=== PATIENT | female | born 1985 | race Hispanic/Latino ===

== ENCOUNTER → 2016-04-04 | Outpatient (REF) | payer OTHER ==
[~2016-04-04] MED LIST: PRENTAB9 PO
== END ==
LOC: M SFHCLERA 12:35
PROVIDERS: ATTEND Nurse Practitioner Family
DX: J02.9 Acute pharyngitis, unspecified (principal)

== ENCOUNTER 2016-04-28 05:42 | Inpatient (IN) | payer OTHER ==
[2016-04-28] VITALS (7 sets, daily range): BP systolic 109–137; BP diastolic 56–91
[~2016-04-28] VITALS: Ht 165.1 cm; Wt 75.0 kg
[2016-04-28] MEDS ORDERED: LR 1,000 ML IV SCH ×2 (06:30→09:45)
[2016-04-28 06:44] LABS: MEAN CORPUSCULAR HEMOGLOBIN 29.5 pg (27.0-33.0); MEAN CORPUSCULAR HGB CONC 33.3 g/dl (32.0-36.5); MEAN CORPUSCULAR VOLUME 88.5 fl (80.0-96.0); RED CELL DISTRIBUTION WIDTH 13.2 % (11.5-14.5); WHITE BLOOD COUNT 5.8 K/mm3 (4.0-10.0)
[2016-04-28] MEDS ORDERED: BICITRA 30ML SOLN UDC PO SCH (07:01)
[2016-04-28] MEDS ORDERED: OXYTOCIN INJ 10 UNITS/ML VIAL (J2590) As Ordered ONE ×4 (07:24→08:12)
[2016-04-28] MEDS ORDERED: MORPHINE PRES-FREE INJ 10 MG/10 ML VIAL (J2274) As Ordered ONE (07:25)
[2016-04-28] MEDS ORDERED: METOCLOPRAMIDE INJ 10MG/2ML VIAL (J2765) As Ordered ONE (07:28)
[2016-04-28] MEDS ORDERED: NALOXONE INJ 0.4 MG/1 ML VIAL (J2310) IV PRN ×2 (07:42)
[2016-04-28] MEDS ORDERED: NALBUPHINE HCL 10 MG/ML AMP (J2300) IV PRN ×2 (07:42→09:45)
[2016-04-28] MEDS ORDERED: METOCLOPRAMIDE INJ 10MG/2ML VIAL (J2765) IV PRN (07:42)
[2016-04-28] MEDS ORDERED: ONDANSETRON 4MG/2ML VIAL (J2405) IV PRN ×2 (07:42→09:45)
[2016-04-28] MEDS ORDERED: PHENYLephrine HCL 500 MCG/5 ML (100MCG/ML) SYRINGE (J2370) As Ordered ONE ×2 (07:51→08:02)
[2016-04-28] MEDS ORDERED: ONDANSETRON 4MG/2ML VIAL (J2405) As Ordered ONE (07:53)
[2016-04-28] MEDS ORDERED: KETOROLAC 60 MG/2 ML VIAL (J1885) As Ordered ONE (07:53)
[2016-04-28] MEDS ORDERED: KETAMINE HCL 200 MG/20 ML VIAL As Ordered ONE (08:44)
[2016-04-28] MEDS ORDERED: MIDAZOLAM INJ 2 MG/2 ML VIAL (J2250) As Ordered ONE (08:45)
[2016-04-28] MEDS: PRENATAL VITAMIN TAB PO SCH (09:00)
[2016-04-28] MEDS ORDERED: ERTAPENEM SODIUM 1 GM in NS MINI-BAG PLUS 50 ML IV ONE (09:00)
[2016-04-28] MEDS ORDERED: BUPIVACAINE HCL 0.25% 30 ML VIAL As Ordered ONE (09:10)
[2016-04-28] MEDS ORDERED: BUPIVACAINE HCL 0.25% 30 ML VIAL SC ONE (09:15)
[2016-04-28] MEDS ORDERED: DOCUSATE SODIUM 100 MG CAP PO PRN (09:30)
[2016-04-28] MEDS ORDERED: MEASLES,MUMPS,RUBELLA VACCINE INJ (MMR-II) (90707) SC SCH (09:30)
[2016-04-28] MEDS ORDERED: OXYTOCIN DRIP 30 UNITS in APPROPRIATE DILUENT 1 EA IV ONE (09:30)
[2016-04-28] MEDS ORDERED: RHOGAM 300 MCG (1500 IU) INJ (J2790) IM SCH (09:30)
[2016-04-28] MEDS ORDERED: PERCOCET 5MG/325MG TAB PO PRN (09:45)
[2016-04-28] MEDS ORDERED: fentaNYL 100 MCG/2 ML INJECTION (J3010) IV PRN (09:45)
[2016-04-28] MEDS ORDERED: MEPERIDINE INJ 25 MG/ML VIAL (J2175) IV PRN (09:45)
[2016-04-28] MEDS ORDERED: HYDROmorphone HCL 1 MG/ML SYRINGE (J1170) IV PRN (09:45)
--- NOTE | 2016-04-28 13:22 | RO ---
DATE OF PROCEDURE: 04/28/2016 PREOPERATIVE DIAGNOSIS: Colon injury during section. POSTOPERATIVE DIAGNOSES: 1. Colon injury during section. 2. Adhesion to the abdominal wall. PROCEDURE PERFORMED: 1. Lysis of adhesion. 2. Repair of colonic tear at the sigmoid colon. SURGEON: Rustam Zuniga MD CO-SURGEON: Nik Perry MD ESTIMATED BLOOD LOSS FROM THIS PROCEDURE: Minimal. COMPLICATIONS: None. REMARKS: Ms. Cabrera is undergoing section. I was called in by Dr. Perry. He recognized a colonic tear in the antimesenteric wall of the colon on entry into the abdomen during the section. At the time that I saw the patient, the section has been completed. I scrubbed and evaluated the injury. There is about a centimeter and half opening at the antimesenteric border of what appears to be the sigmoid colon. This was still partially adhered to the abdominal wall. Thus after controlling the injury site with [place]'s, the rest of the sigmoid colon was freed up from the left side of the anterior abdominal wall with sharp dissection. After careful lysis of adhesions, the colon was pulled up into view. The injury was noted to be full thickness. There was only minimal spillage, as reported. This was grasped in a transverse fashion using a TA-30 stapler with a green load. The opening was stapled. This was reinforced with a #3-0 silk in a Lembert fashion. This was placed back into the abdomen. The abdomen was then irrigated with 2 liters of warm saline. We further run the bowel. No other injuries were noted. At this point, I scrubbed out and Dr. Perry continued with his surgery.
[2016-04-28] MEDS: KETOROLAC 30 MG/ML VIAL (J1885) IV SCH ×2 (13:52→20:00)
[2016-04-28] MEDS: LR 1,000 ML IV SCH ×3 (14:27→20:00)
[2016-04-28] MEDS ORDERED: ACETAMINOPHEN 500 MG TAB PO PRN (18:30)
[2016-04-29] VITALS (7 sets, daily range): BP systolic 101–156; BP diastolic 50–82
[2016-04-29] MEDS: KETOROLAC 30 MG/ML VIAL (J1885) IV SCH ×2 (01:38→08:39)
[2016-04-29] MEDS: PERCOCET 5MG/325MG TAB PO PRN ×4 (01:38→21:44)
[2016-04-29 06:56] LABS: MEAN CORPUSCULAR HEMOGLOBIN 29.3 pg (27.0-33.0); MEAN CORPUSCULAR HGB CONC 33.2 g/dl (32.0-36.5); MEAN CORPUSCULAR VOLUME 88.4 fl (80.0-96.0); RED CELL DISTRIBUTION WIDTH 13.1 % (11.5-14.5); WHITE BLOOD COUNT 16.2 K/mm3 (4.0-10.0)
[2016-04-29] MEDS: PRENATAL VITAMIN TAB PO SCH (08:39)
[2016-04-29] MEDS: ERTAPENEM SODIUM 1 GM in NS MINI-BAG PLUS 50 ML IV SCH (09:19)
--- NOTE | 2016-04-29 10:48 | RO ---
DATE OF PROCEDURE: 04/28/2016 PREPROCEDURE DIAGNOSES: 36-0/7 weeks gestation, prior history of uterine rupture. Cornual ectopic . POSTPROCEDURE DIAGNOSES: 36-0/7 weeks gestation, prior history of uterine rupture. Cornual ectopic . PROCEDURE: Primary low transverse section as well as repair of incidental enterotomy. SURGEON: Dr. Nik Perry. REGIONAL OPERATIONS DIRECTOR: Cathryn Hamm. ANESTHESIA: Spinal. ESTIMATED BLOOD LOSS: About 500 mL. FINDINGS: 4 pound 5 ounce female infant, vertex position, clear amniotic fluid. There were dense adhesions of the sigmoid colon to the anterior abdominal wall in the pelvis. There were dense adhesions of the left uterine fundus in the anterior abdominal wall. Surgically absent left ovary and fallopian tube. There is a normal appearing right ovary and fallopian tube. The myometrium of the left cornual region of the uterus was noted to be extremely thin. OPERATIVE SUMMARY: The patient was taken to the operating room where spinal anesthesia was induced. She was prepped and draped in a sterile fashion in the supine position. Farr catheter was placed. A Pfannenstiel skin incision was made with a scalpel and carried through to the fascia. The fascia was nicked and extended bilaterally. The fascia was dissected sharply off the rectus muscles. The rectus muscles were divided in the midline. It was noted that bowel was densely adherent to the anterior abdominal wall in the midline in the lower pelvis. Enterotomy was noted which was likely created when dissecting the fascia off the rectus muscles. Once the bowel was identified, a window was observed between the bladder and the bowel which allowed entry into the peritoneal cavity. Bladder flap was created. Bladder blade was placed. Decision was made to proceed with delivery and deal with the bowel injury after was completed. A curvilinear incision was made in the lower uterine segment. Clear fluid was noted and extended manually. The was delivered in vertex position without difficulties, standard maneuvers. Cord was doubly clamped and cut. The infant was handed off to the awaiting nurses. Placenta was expressed. Dense adhesions of the uterus and anterior wall on the left side were taken down sharply. The uterus was exteriorized and cleared of clots and debris. Uterine incision was closed with #0 Vicryl in running locked fashion. The second imbricating layer of #0 Vicryl was placed. Uterus was placed back in the abdominal cavity. The bowel adhered to the anterior abdominal wall appeared to be sigmoid colon. Metzenbaum scissors were used to sharply dissect bowel off the anterior abdominal wall. At that point, general surgeon, Dr. Rustam Zuniga, was called for consultation. Dr Zuniga responded quickly. A [place] clamp was placed over a 10 mm enterotomy site to prevent spillage of bowel contents.He was able to completely dissect the sigmoid colon off the anterior abdominal wall. He used a surgical stapler to cross clamp the enterotomy site and over-sewed the enterotomy with silk sutures. Please see Dr. Zuniga's operative note for details. Pelvis and abdomen was copiously irrigated. Bowel was returned to the abdomen. There was no evidence of any further enterotomies on close inspection. The peritoneum was then closed with #2-0 Vicryl in a running fashion. The fascia was closed with #0 Vicryl in a running fashion. Subcutaneous tissue was irrigated. Deep layers closed with #3-0 chromic, skin was closed with #4-0 Monocryl subcuticular sutures. Sponge, needle and instrument counts were correct. Patient went to the recovery room in stable condition. [facility]ITAL[facility]
[2016-04-29] MEDS ORDERED: OXYC1TAB23 PO (13:36)
[2016-04-29] MEDS: IBUPROFEN 800 MG TAB PO SCH (16:32)
[2016-04-29] MEDS: DOCUSATE SODIUM 100 MG CAP PO SCH (21:44)
[2016-04-30] MEDS: IBUPROFEN 800 MG TAB PO SCH ×3 (00:12→15:48)
[2016-04-30] MEDS: PERCOCET 5MG/325MG TAB PO PRN ×4 (02:04→20:49)
[2016-04-30 06:18] VITALS: BP 109/59
[2016-04-30 07:50] LABS: BASO % 0.1 % (0.0-1.0); EOS # 0.2 K/mm3 (0.0-0.50); EOS % 1.3 % (0.0-3.0); LARGE UNSTAINED CELL # 0.1 K/mm3 (0.0-0.4); LARGE UNSTAINED CELL % 0.8 % (0.0-4.0); LYMPH # 1.2 K/mm3 (1.5-6.5); LYMPH % 7.9 % (24.0-44.0); MEAN CORPUSCULAR HEMOGLOBIN 28.8 pg (27.0-33.0); MEAN CORPUSCULAR HGB CONC 32.4 g/dl (32.0-36.5); MONO # 0.3 K/mm3 (0.0-0.8); MONO % 2.4 % (0.0-5.0); NEUTROPHILS % 87.5 % (36.0-66.0); PLATELET COUNT, AUTOMATED 261 k/mm3 (150-450); RED CELL DISTRIBUTION WIDTH 13.3 % (11.5-14.5); WHITE BLOOD COUNT 13.7 K/mm3 (4.0-10.0)
[2016-04-30 08:04] LABS: ANION GAP 10 MEQ/L (8-16); BLOOD UREA NITROGEN 9 MG/DL (7-18); CARBON DIOXIDE LEVEL 23 MEQ/L (21-32); CHLORIDE LEVEL 108 MEQ/L (98-107); CREATININE FOR GFR 0.42 MG/DL (0.55-1.02); GLOMERULAR FILTRATION RATE > 60.0 (>60); GLUCOSE, FASTING 83 MG/DL (70-105); POTASSIUM SERUM 3.8 MEQ/L (3.5-5.1); SODIUM LEVEL 141 MEQ/L (136-145)
[2016-04-30] MEDS: DOCUSATE SODIUM 100 MG CAP PO SCH ×2 (09:34→20:49)
[2016-04-30] MEDS: PRENATAL VITAMIN TAB PO SCH (09:34)
[2016-04-30 10:00] VITALS: BP 120/72
[2016-04-30] MEDS: ERTAPENEM SODIUM 1 GM in NS MINI-BAG PLUS 50 ML IV SCH (10:03)
[2016-04-30] MEDS: ONDANSETRON 4MG/2ML VIAL (J2405) IV PRN (12:34)
[2016-04-30 14:16] VITALS: BP 120/70
[2016-04-30 18:00] VITALS: BP 117/67
[2016-05-01] MEDS: IBUPROFEN 800 MG TAB PO SCH ×3 (00:32→16:08)
[2016-05-01] MEDS: PERCOCET 5MG/325MG TAB PO PRN ×4 (02:02→12:38)
[2016-05-01] MEDS: ONDANSETRON 4MG/2ML VIAL (J2405) IV PRN (03:18)
[2016-05-01 06:06] VITALS: BP 126/76
[2016-05-01] MEDS: DICYCLOMINE 10 MG CAP PO SCH ×3 (09:00→20:51)
[2016-05-01] MEDS: DOCUSATE SODIUM 100 MG CAP PO SCH (09:10)
[2016-05-01] MEDS: PRENATAL VITAMIN TAB PO SCH (09:10)
[2016-05-01] MEDS: ERTAPENEM SODIUM 1 GM in NS MINI-BAG PLUS 50 ML IV SCH (09:12)
[2016-05-01 18:02] VITALS: BP 123/71
[2016-05-01] MEDS: SENOKOT S TAB PO SCH (20:51)
[2016-05-01 22:00] VITALS: BP 119/74
[2016-05-02] MEDS: IBUPROFEN 800 MG TAB PO SCH ×2 (00:37→08:37)
[2016-05-02 01:32] VITALS: BP 126/76
[2016-05-02] MEDS: PERCOCET 5MG/325MG TAB PO PRN (02:18)
[2016-05-02 05:28] VITALS: BP 117/74
--- NOTE | 2016-05-02 07:52 | DSES ---
DATE OF ADMISSION: 04/28/2016 DATE OF DISCHARGE: 05/02/2016 30-year-old G8, P1 female 36-0/7 weeks gestation by 8 week ultrasound presents for primary section. Indication for section was early delivery with a history of ruptured uterus due to cornual ectopic in the past. HOSPITAL COURSE: The patient was admitted on 04/28/2016. She underwent primary low transverse section for a 4 pound, 5 ounce female . The surgery was complicated by 1 cm sigmoid colon injury. The reason for the sigmoid colon injury was dense adhesions of the sigmoid colon at the anterior abdominal wall overlying the Pfannenstiel surgical site. General surgery was consulted and they repaired the injury without difficulty. The patient's postoperative course was unremarkable. She was maintained on antibiotics for several days due to the possibility of surgical incision contamination from the colon injury. She had adequate return of bowel and bladder function. Her postoperative hemoglobin was 8.4 grams/dL. She was observed for an extra day postoperatively due to the complication from the surgery. The baby was in the intensive care unit (NICU) due to prematurity. The patient was deemed stable for discharge on postoperative day number four. ADMISSION DIAGNOSES: 1. 36 weeks. 2. History of uterine rupture. POSTOPERATIVE DIAGNOSES: Delivered. PROCEDURE: 1. Primary low transverse section. 2. Repair of sigmoid colon injury. DISPOSITION: The patient will followup with Dr. Perry in two weeks. Instructions were reviewed.
[2016-05-02] MEDS ORDERED: IBUP-1114 PO (08:05)
[2016-05-02] MEDS: DICYCLOMINE 10 MG CAP PO SCH (08:37)
[2016-05-02] MEDS: SENOKOT S TAB PO SCH (08:37)
[2016-05-02] MEDS: PRENATAL VITAMIN TAB PO SCH (08:37)
== END 2016-05-02 09:00 | disposition home or self-care (01) | DRG 765 ==
LOC: M LDI 05:42 → M OBS 11:45
PROVIDERS: ADMIT Specialist; ATTEND Specialist
PROC: 0DQN0ZZ Repair Sigmoid Colon, Open Approach (ICD-10-PCS; 2016-04-28)
PROC: 0DNE0ZZ Release Large Intestine, Open Approach (ICD-10-PCS; 2016-04-28)
PROC: 10D00Z1 Extraction of Products of Conception, Low, Open Approach (ICD-10-PCS; principal; 2016-04-28 07:30)
DX: O99.62 Diseases of the digestive system complicating childbirth (principal); K56.5 Intestinal adhesions [bands] with obstruction (postinfection); Z37.0 Single live birth; Z3A.36 36 weeks gestation of pregnancy; O09.13 Supervision of pregnancy with history of ectopic pregnancy, third trimester; O71.89 Other specified obstetric trauma

== ENCOUNTER → 2016-06-15 | Outpatient (CLI) | payer OTHER ==
[~2016-06-15] MED LIST changes: +IBUP-1114 PO; +OXYC1TAB23 PO
[2016-06-15 15:43] LABS: ALBUMIN 3.8 GM/DL (3.2-5.2); ALBUMIN/GLOBULIN RATIO 0.93 (1.00-1.93); ALKALINE PHOSPHATASE 108 U/L (45-117); ALT/SGPT 18 U/L (12-78); ANION GAP 9 MEQ/L (8-16); AST/SGOT 25 U/L (15-37); BILIRUBIN,TOTAL 0.4 MG/DL (0.2-1.0); BLOOD UREA NITROGEN 16 MG/DL (7-18); CALCIUM LEVEL 9.3 MG/DL (8.5-10.1); CARBON DIOXIDE LEVEL 28 MEQ/L (21-32); CHLORIDE LEVEL 104 MEQ/L (98-107); CREATININE FOR GFR 0.72 MG/DL (0.55-1.02); FREE T4 0.98 NG/DL (0.76-1.46); GLOMERULAR FILTRATION RATE > 60.0 (>60); GLUCOSE, FASTING 72 MG/DL (70-105); POTASSIUM SERUM 4.4 MEQ/L (3.5-5.1); SODIUM LEVEL 141 MEQ/L (136-145); TOTAL PROTEIN 7.9 GM/DL (6.4-8.2)
[2016-06-15 15:47] LABS: BASO % 0.5 % (0.0-1.0); EOS # 0.1 K/mm3 (0.0-0.50); EOS % 1.1 % (0.0-3.0); LARGE UNSTAINED CELL # 0.1 K/mm3 (0.0-0.4); LARGE UNSTAINED CELL % 1.4 % (0.0-4.0); LYMPH # 1.7 K/mm3 (1.5-6.5); LYMPH % 30.8 % (24.0-44.0); MEAN CORPUSCULAR HEMOGLOBIN 28.4 pg (27.0-33.0); MEAN CORPUSCULAR HGB CONC 30.4 g/dl (32.0-36.5); MEAN CORPUSCULAR VOLUME 93.4 fl (80.0-96.0); MONO # 0.2 K/mm3 (0.0-0.8); MONO % 3.6 % (0.0-5.0); NEUTROPHILS # 3.4 K/mm3 (1.8-7.7); NEUTROPHILS % 62.6 % (36.0-66.0); PLATELET COUNT, AUTOMATED 320 k/mm3 (150-450); RED CELL DISTRIBUTION WIDTH 14.2 % (11.5-14.5); WHITE BLOOD COUNT 5.4 K/mm3 (4.0-10.0)
== END ==
LOC: M SMT 11:16
PROVIDERS: ATTEND Physician Assistant
DX: R63.4 Abnormal weight loss (principal)

== ENCOUNTER → 2017-05-29 | Outpatient (REF) | payer OTHER | LOC: M LAB REF 12:28 | DX: J06.9 Acute upper respiratory infection, unspecified (principal) ==

== ENCOUNTER → 2017-10-01 | Outpatient (REF) | payer OTHER | LOC: M SFHCLERA 09:52 | DX: J02.9 Acute pharyngitis, unspecified (principal) ==

== ENCOUNTER → 2018-02-23 | Outpatient (CLI) | payer OTHER | LOC: M LRY 17:55 | DX: R05 Cough (principal); R11.2 Nausea with vomiting, unspecified; R10.13 Epigastric pain; Z97.5 Presence of (intrauterine) contraceptive device | CPT/HCPCS: 81002 ==

== ENCOUNTER → 2020-01-23 | Outpatient (REF) ==
--- NOTE | 2020-01-23 17:09 | REP ---
INDICATION: POSITIVE PPD PT HAVING LABS FIRST COMPARISON: 02/23/2018 TECHNIQUE: PA and lateral. FINDINGS: The mediastinum and cardiac silhouette are normal. The lung rizo are clear and without acute consolidation, effusion, or pneumothorax. The skeletal structures are intact and normal. IMPRESSION: No acute cardiopulmonary process. <Electronically signed by Casey Duarte > 01/23/20 [id number]
== END ==
LOC: M LAB 16:45
PROVIDERS: ATTEND Nurse Practitioner Adult Health
DX: Z00.00 Encounter for general adult medical examination without abnormal findings (principal)

== ENCOUNTER → 2020-04-30 | Outpatient (REF) | LOC: M LABSMTC 11:52 | PROVIDERS: ATTEND Pediatrics | DX: Z20.822 Contact with and (suspected) exposure to COVID-19 (principal) ==

== ENCOUNTER → 2020-06-10 | Outpatient (REF) | payer BC, OTHER | LOC: M LAB REF 18:31 | PROVIDERS: ATTEND Family Medicine | DX: J06.9 Acute upper respiratory infection, unspecified (principal) ==

== ENCOUNTER → 2020-06-22 | Outpatient (REF) | payer BC, OTHER | LOC: M LAB REF 18:03 | PROVIDERS: ATTEND Physician Assistant | DX: Z86.16 Personal history of COVID-19 (principal) ==

== ENCOUNTER → 2020-08-04 | Outpatient (CLI) | payer BC ==
[2020-08-04 10:13] LABS: BASO % 0.4 % (0.0-1.0); EOS # 0.1 10^3/uL (0.0-0.5); EOS % 0.7 % (0.0-3.0); HEMATOCRIT 38.7 % (36.0-47.0); HEMOGLOBIN 12.3 g/dl (12.0-15.5); LYMPH # 1.3 10^3/uL (1.5-5.0); LYMPH % 17.7 % (24.0-44.0); MEAN CORPUSCULAR HEMOGLOBIN 29.1 pg (27.0-33.0); MEAN CORPUSCULAR HGB CONC 31.8 g/dl (32.0-36.5); MEAN CORPUSCULAR VOLUME 91.7 fl (80.0-96.0); MONO # 0.3 10^3/uL (0.0-0.8); MONO % 4.1 % (2.0-8.0); NEUTROPHILS # 5.8 10^3/uL (1.5-8.5); NEUTROPHILS % 76.6 % (36.0-66.0); PLATELET COUNT, AUTOMATED 363 10^3/uL (150-450); RED BLOOD COUNT 4.22 10^6/uL (4.00-5.40); WHITE BLOOD COUNT 7.6 10^3/uL (4.0-10.0)
[2020-08-04 10:52] LABS: FREE T4 0.94 NG/DL (0.76-1.46)
[2020-08-06 15:08] LABS: ANA (HEP2) Negative (.); TESTOSTERONE FREE (DIRECT) 3.2 pg/mL (0.0-4.2)
== END ==
LOC: M LAB 09:16
PROVIDERS: ATTEND Physician Assistant
DX: L65.8 Other specified nonscarring hair loss (principal)

== ENCOUNTER → 2020-08-04 | Outpatient (CLI) | payer BC ==
[~2020-08-04] MED LIST changes: +E-Z-GAS II EFFERVESCENT PACKET (SODIUM BICARB./CITRIC ACID/SIMETHICONE) As Ordered ONE; +E-Z-HD 98% w/w 340GM SUSP BTL As Ordered ONE; +E-Z-PAQUE 96% w/w SUSP 176GM BTL As Ordered ONE; +ISOVUE-370 76% 100ML VIAL As Ordered ONE
--- NOTE | 2020-08-04 10:05 | REPVR ---
PROCEDURE INFORMATION: Exam: CT Maxillofacial Without Contrast, Sinus Exam date and time: 08/04/2020 9:59 AM Age: 34 years old Clinical indication: Sinusitis; Type not specified; Additional info: Disturbances of smell and taste, dysphagia, labs 1st TECHNIQUE: Imaging protocol: CT Maxillofacial without contrast. Focus on the sinuses. Radiation optimization: All CT scans at this facility use at least one of these dose optimization techniques: automated exposure control; mA and/or kV adjustment per patient size (includes targeted exams where dose is matched to clinical indication); or iterative reconstruction. COMPARISON: No relevant prior studies available. FINDINGS: Frontal sinuses: The frontal sinuses are underdeveloped. No air-fluid levels. Ethmoid air cells: Normal. No air-fluid levels. Sphenoid sinuses: Normal. No air-fluid levels. Maxillary sinuses: Normal. No air-fluid levels. Ostiomeatal units are patent. Nasal cavity/Septum: There is a elisabeth bullosa of the right middle turbinate. Orbital cavity: Orbits are normal. Globes are unremarkable. Bones/joints: Unremarkable. Soft tissues: There is focal mucosal thickening involving the adenoids. IMPRESSION: 1. Focal mucosal thickening of the adenoids. Direct inspection by ENT may be of benefit. 2. No significant sinus mucosal thickening. Electronically signed by: Cheri Lazcano On 08/04/2020 10:05:12 AM
--- NOTE | 2020-08-04 10:11 | REPVR ---
PROCEDURE INFORMATION: Exam: CT Neck With Contrast Exam date and time: 08/04/2020 9:59 AM Age: 34 years old Clinical indication: Neck pain; Additional info: Disturbances of smell and taste, dysphagia, labs 1st TECHNIQUE: Imaging protocol: Computed tomography images of the neck with contrast. Radiation optimization: All CT scans at this facility use at least one of these dose optimization techniques: automated exposure control; mA and/or kV adjustment per patient size (includes targeted exams where dose is matched to clinical indication); or iterative reconstruction. Contrast material: ISO 370; Contrast volume: 75 ml; Contrast route: INTRAVENOUS (IV); COMPARISON: No relevant prior studies available. FINDINGS: Nasopharynx: There is focal thickening of the nasopharyngeal soft tissues along the midline. Oropharynx: There are calcifications within the palatine tonsils bilaterally. Hypopharynx: Unremarkable. Larynx: Unremarkable. Normal epiglottis. Retropharyngeal space: Unremarkable. Submandibular/Parotid glands: Normal. Glands are normal in size. Thyroid: Normal. No enlarged or calcified nodules. Lymph nodes: Unremarkable. No lymphadenopathy. Trachea: Visualized trachea is unremarkable. Lungs: Unremarkable as visualized. Bones/joints: Unremarkable. No acute fracture. Soft tissues: Unremarkable. No significant soft tissue swelling. IMPRESSION: Focal thickening of the nasopharyngeal soft tissues. Direct inspection by ENT is recommended. Electronically signed by: Cheri Lazcano On 08/04/2020 10:10:50 AM
--- NOTE | 2020-08-04 10:33 | REP ---
INDICATION: PRIOR HX OF COVID-19 WOB COUGH COMPARISON: 01/23/2020 TECHNIQUE: PA and lateral. FINDINGS: The mediastinum and cardiac silhouette are normal. The lung rizo are clear and without acute consolidation, effusion, or pneumothorax. The skeletal structures are intact and normal. IMPRESSION: No acute cardiopulmonary process. <Electronically signed by Casey Duarte > 08/04/20 1028
--- NOTE | 2020-08-04 17:11 | REP ---
INDICATION: DYSPHAGIA, UNSPECIFIED / LABS 1ST . TECHNIQUE: This procedure was performed by Lurdes Mcclelland [facility], under the direct supervision of . Images were reviewed with prior to dictation. Liquid barium and gas producing crystals were given in the erect position, as well as liquid barium in the prone oblique position in order to perform a double contrast upper GI examination. FINDINGS: The bisque kiln drawer film shows no organomegaly or pathological masses. The intestinal gas pattern is unremarkable. The oral and pharyngeal stages of deglutition demonstrated a delay in the oral to pharyngeal stage. Esophageal transport is prompt and efficient and there is no evidence of esophagitis, stricture, or mucosal ring. There is no evidence of a hiatal hernia. Gastroesophageal reflux was visualized to the level of the thoracic inlet. The stomach moncada are normally outlined. The rugal folds are smooth and regular. There is no gastritis, neoplasm, or ulcerative disease. The duodenal mnocada are normally outlined. The mucosal folds are smooth and regular. There is no duodenitis, peptic ulcer disease or neoplasm. The visualized portion of the proximal small bowel appears normal in course and caliber. IMPRESSION: 1. Gastroesophageal reflux to the level of the thoracic inlet. 0.4 minutes of fluoroscopy time was utilized for this procedure. Some fluoroscopic images are performed with last image hold technology. These images require no additional radiation. <Electronically signed by Lurdes Mcclelland > 08/04/20 1627 <Electronically signed by Blayne Nieto > 08/04/20 1706
== END ==
LOC: M RAD 09:07
PROVIDERS: ATTEND Otolaryngology
DX: K21.9 Gastro-esophageal reflux disease without esophagitis (principal); Z86.16 Personal history of COVID-19; R06.02 Shortness of breath; R05 Cough; R43.8 Other disturbances of smell and taste; R13.10 Dysphagia, unspecified
CPT/HCPCS: 70486; 70491; 71046; 74220; Q9967

== ENCOUNTER → 2020-09-14 | Outpatient (CLI) | payer BC ==
[~2020-09-14] MED LIST changes: -E-Z-GAS II EFFERVESCENT PACKET (SODIUM BICARB./CITRIC ACID/SIMETHICONE) As Ordered ONE; -E-Z-HD 98% w/w 340GM SUSP BTL As Ordered ONE; -E-Z-PAQUE 96% w/w SUSP 176GM BTL As Ordered ONE; -ISOVUE-370 76% 100ML VIAL As Ordered ONE
[2020-09-14 12:57] LABS: BASO % 0.5 % (0.0-1.0); EOS % 0.5 % (0.0-3.0); HEMATOCRIT 40.4 % (36.0-47.0); HEMOGLOBIN 12.8 g/dl (12.0-15.5); LYMPH # 1.6 10^3/uL (1.5-5.0); LYMPH % 21.8 % (24.0-44.0); MEAN CORPUSCULAR HGB CONC 31.7 g/dl (32.0-36.5); MEAN CORPUSCULAR VOLUME 91.6 fl (80.0-96.0); MONO # 0.4 10^3/uL (0.0-0.8); MONO % 4.9 % (2.0-8.0); NEUTROPHILS # 5.3 10^3/uL (1.5-8.5); NEUTROPHILS % 71.9 % (36.0-66.0); PLATELET COUNT, AUTOMATED 434 10^3/uL (150-450); RED BLOOD COUNT 4.41 10^6/uL (4.00-5.40); WHITE BLOOD COUNT 7.4 10^3/uL (4.0-10.0)
[2020-09-14 13:25] LABS: ALBUMIN 3.3 GM/DL (3.2-5.2); ALT/SGPT 18 U/L (12-78); BILIRUBIN,TOTAL 0.4 MG/DL (0.2-1.0); BLOOD UREA NITROGEN 13 MG/DL (7-18); CALCIUM LEVEL 9.2 MG/DL (8.5-10.1); CARBON DIOXIDE LEVEL 28 MEQ/L (21-32); CHLORIDE LEVEL 104 MEQ/L (98-107); CHOLESTEROL LEVEL 265 MG/DL (<200); CHOLESTEROL RISK RATIO 5.408 (<5); GLOMERULAR FILTRATION RATE > 60.0 (>60); GLUCOSE, FASTING 93 MG/DL (70-100); HDL CHOLESTEROL 49 MG/DL (>40); LDL CHOLESTEROL 196 MG/DL (<100); NON-HDL-C 216 MG/DL; POTASSIUM SERUM 4.8 MEQ/L (3.5-5.1); SODIUM LEVEL 137 MEQ/L (136-145); TOTAL PROTEIN 7.7 GM/DL (6.4-8.2); TRIGLYCERIDES LEVEL 100 MG/DL (<150)
== END ==
LOC: M LAB 11:52
PROVIDERS: ATTEND Physician Assistant Medical
DX: Z00.00 Encounter for general adult medical examination without abnormal findings (principal); E66.8 Other obesity; R23.3 Spontaneous ecchymoses; Z13.220 Encounter for screening for lipoid disorders

== ENCOUNTER → 2020-10-19 | Outpatient (CLI) | payer BC ==
[~2020-10-19] MED LIST changes: +AMIT25TA17 PO; +QVAR40AE12 IN; +SPIR-10 PO; +VITA-199 PO; +[UNRECOGNIZED DRUG - CODE] PO
--- NOTE | 2020-10-19 11:56 | REP ---
INDICATION: NAUSEA. COMPARISON: None. TECHNIQUE/RADIOTRACER AND DOSE: 1.05 mCi of Technetium-99m sulfur colloid was ingested in two scrambled eggs and 6 ounces of water and sequential anterior and posterior images are acquired for an 89-minute imaging observation period. Regions of interest are drawn around the stomach to plot gastric emptying. FINDINGS: Expected T1/2 is 90 minutes. Ninety-seven% emptying is observed in this patient during the 89-minute imaging observation period, for a calculated T1/2 in this patient of 43 minutes. IMPRESSION: Normal gastric emptying. <Electronically signed by Andrea Fry > 10/19/20 [id number]
== END ==
LOC: M RAD 08:50
PROVIDERS: ATTEND Physician Assistant Medical
DX: R11.0 Nausea (principal)
CPT/HCPCS: 78264; A9541

== ENCOUNTER → 2020-10-21 | Outpatient (CLI) | payer BC | LOC: M LABSMTC 11:59 | PROVIDERS: ATTEND Anesthesiology | DX: Z01.812 Encounter for preprocedural laboratory examination (principal); Z20.822 Contact with and (suspected) exposure to COVID-19 ==

== ENCOUNTER 2020-10-23 06:42 | Day surgery (SDC) | payer BC ==
[~2020-10-23] VITALS: Ht 165.1 cm; Wt 106.5 kg
[~2020-10-23 06:42] MED LIST changes: +NS 1,000 ML IV ONE
[2020-10-23] MEDS ORDERED: fentaNYL 100 MCG/2 ML INJECTION (J3010) As Ordered ONE (07:39)
[2020-10-23] MEDS ORDERED: LIDOCAINE 2% 100MG/5ML SDV (FOR ANES.) As Ordered ONE (07:39)
[2020-10-23] MEDS ORDERED: propofoL 200 MG/20 ML VIAL As Ordered ONE ×2 (07:39→07:40)
--- NOTE | 2020-10-23 08:10 | ROOR ---
Patient Name: Maya Cabrera Procedure Date: 10/23/2020 7:27 AM Date of : 1985 Age: 35 Room: [facility] Gender: Female Note Status: Finalized Procedure: Upper GI endoscopy Indications: Dysphagia, Nausea Providers: Ravinder Heredia MD Referring MD: Geetha RUDOLPH DO Requesting Provider: Medicines: Monitored Anesthesia Care Complications: No immediate complications. Procedure: Pre-Anesthesia Assessment: - Prior to the procedure, a History and Physical was performed, and patient medications and allergies were reviewed. The patient is competent. The risks and benefits of the procedure and the sedation options and risks were discussed with the patient. All questions were answered and informed consent was obtained. Patient identification and proposed procedure were verified by the physician, the nurse and the anesthesiologist in the procedure room. Mental Status Examination: alert and oriented. Airway Examination: normal oropharyngeal airway and neck mobility. Respiratory Examination: clear to auscultation. CV Examination: normal. Prophylactic Antibiotics: The patient does not require prophylactic antibiotics. Prior Anticoagulants: The patient has taken no previous anticoagulant or antiplatelet agents. ASA Grade Assessment: II - A patient with mild systemic disease. After reviewing the risks and benefits, the patient was deemed in satisfactory condition to undergo the procedure. The anesthesia plan was to use monitored anesthesia care (MAC). Immediately prior to administration of medications, the patient was re-assessed for adequacy to receive sedatives. The heart rate, respiratory rate, oxygen saturations, blood pressure, adequacy of pulmonary ventilation, and response to care were monitored throughout the procedure. The physical status of the patient was re-assessed after the procedure. The Endoscope was introduced through the mouth, and advanced to the second part of duodenum. The upper GI endoscopy was accomplished without difficulty. The patient tolerated the procedure well. Findings: Normal mucosa was found in the entire esophagus. A small hiatal hernia was present. Scattered moderate inflammation characterized by erosions, friability and granularity was found in the gastric antrum. Biopsies were taken with a cold forceps for histology. Biopsies were taken with a cold forceps for Helicobacter pylori testing. Verification of patient identification for the specimen was done by the physician and nurse using the patient's name, date and medical record number. Estimated blood loss was minimal. The duodenal bulb and second portion of the duodenum were normal. Biopsies for histology were taken with a cold forceps for evaluation of celiac disease. Impression: - Normal mucosa was found in the entire esophagus. - Small hiatal hernia. - Gastritis. Biopsied. - Normal duodenal bulb and second portion of the duodenum. Biopsied. Recommendation: - Patient has a contact number available for emergencies. The signs and symptoms of potential delayed complications were discussed with the patient. Return to normal activities tomorrow. Written discharge instructions were provided to the patient. - High fiber diet. - Continue present medications. - Follow an antireflux regimen. - Await pathology results. - Telephone GI clinic for pathology results in 2 weeks. - Return to GI clinic if persistent symptoms or new symptoms. - Return to primary care physician. Procedure Code(s): --- Professional --- 68825, Esophagogastroduodenoscopy, flexible, transoral; with biopsy, single or multiple Diagnosis Code(s): --- Professional --- K44.9, Diaphragmatic hernia without obstruction or gangrene K29.70, Gastritis, unspecified, without bleeding R13.10, Dysphagia, unspecified R11.0, Nausea CPT copyright 2019 [employer]. All rights reserved. The codes documented in this report are preliminary and upon parking assistant review may be revised to meet current compliance requirements. Ravinder Heredia MD Ravinder Heredia MD 10/23/2020 8:10:16 AM Electronically signed by Ravinder Heredia MD Number of Addenda: 0 Note Initiated On: 10/23/2020 7:27 AM Estimated Blood Loss: Estimated blood loss was minimal.
[2020-10-23 08:35] VITALS: BP 135/95
== END 2020-10-23 08:44 | disposition home or self-care (01) ==
LOC: M OPP 06:42
PROVIDERS: ATTEND Internal Medicine Gastroenterology
DX: K44.9 Diaphragmatic hernia without obstruction or gangrene (principal); K29.70 Gastritis, unspecified, without bleeding; R13.10 Dysphagia, unspecified; R11.0 Nausea; Z88.0 Allergy status to penicillin; Z91.040 Latex allergy status; Z91.048 Other nonmedicinal substance allergy status; Z79.899 Other long term (current) drug therapy
CPT/HCPCS: 43239; 88305; J3010

== ENCOUNTER → 2021-01-25 | Outpatient (REF) | payer BC ==
[~2021-01-25] MED LIST changes: -NS 1,000 ML IV ONE
== END ==
LOC: M LAB REF 17:03
PROVIDERS: ATTEND Physician Assistant
DX: J06.9 Acute upper respiratory infection, unspecified (principal)

== ENCOUNTER → 2021-03-10 | Outpatient (CLI) | payer BC ==
--- NOTE | 2021-03-11 11:59 | PFTRPT ---
Site: [facility], [address] [place] [address], [id number] ID: [id number] Name: RED PATE Visit Date: 03/10/2021 Second ID: [id number] Referring Doctor: Ana Younger Reviewing Doctor: Bradford Harley MD Manager Analytical: Real FERNANDES RRT Age: 35 : 1985 Sex: Female Race: Black Height: 65.00 Inches Weight: 243.00 Lbs BSA: 2.15 Order IDs: [id number] Requested Test(s): <RESP-PFT.PFT B/A> Diagnosis: R05 of albuterol for post bronchodilator. The results of this test meet the ATS standards for acceptability and repeatability. Review Status: Not Reviewed Pre-Bronch Post-Bronch Pred Actual %Pred Actual %Chng SPIROMETRY FVC (L) 3.28 3.35 102 3.41 1 FEV1 (L) 2.75 2.85 103 3.01 5 FEV1/FVC (%) 85 85 100 88 3 FEF 25% (L/sec) 5.71 5.42 94 5.43 FEF 50% (L/sec) 4.38 4.34 98 5.10 17 FEF 75% (L/sec) 1.81 1.36 75 2.15 57 FEF 25-75% (L/sec) 3.13 3.35 107 4.21 25 FEF Max (L/sec) 6.94 5.46 78 5.76 5 FIVC (L) 3.10 3.28 5 FIF 50% (L/sec) 4.40 4.14 94 4.23 2 FIF Max (L/sec) 4.14 4.45 7 MVV (L/min) 108 108 99 Expiratory Time (sec) 6.46 6.12 -5 Back Extrap Vol (L) 0.10 0.14 32 Time To FEFmax (sec) 0.134 0.201 49 LUNG VOLUMES SVC (L) 3.69 3.27 88 IC (L) 2.34 2.65 113 ERV (L) 1.35 0.62 46 TGV (L) 2.87 1.94 67 RV (Pleth) (L) 1.51 1.32 86 TLC (Pleth) (L) 5.20 4.59 88 RV/TLC (Pleth) (%) 28 29 100 DIFFUSION DLCOunc (ml/min/mmHg) 24.92 18.18 72 DLCOcor (ml/min/mmHg) 24.92 19.42 77 DL/VA (ml/min/mmHg/L) 4.79 4.68 97 VA (L) 5.20 4.15 79 BHT (sec) 9.95 IVC (L) 3.07 TLC (SB) (L) 4.30 AIRWAYS RESISTANCE Raw (cmH2O/L/s) 1.86 1.16 62 Gaw (L/s/cmH2O) 1.03 0.87 84 sRaw (cmH2O*s) 4.76 2.30 48 sGaw (1/cmH2O*s) 0.20 0.44 216 BLOOD GASES Hgb (gm/dL) 11.5
== END ==
LOC: M CARPUL 15:17
PROVIDERS: ATTEND Nurse Practitioner Adult Health
DX: R05.9 Cough, unspecified (principal)

== ENCOUNTER → 2021-03-16 | Outpatient (CLI) | payer BC ==
[~2021-03-16] MED LIST changes: +METHACHOLINE KIT (J7674) INH ONE
--- NOTE | 2021-03-16 15:41 | PFTRPT ---
Site: [facility], [address] [place], [address] ID: [id number] Name: RED PATE Visit Date: 03/16/2021 Second ID: [id number] Referring Doctor: Ana Younger Reviewing Doctor: Bradford Harley MD Solar Water Heater Installer: Real FERNANDES RRT Age: 35 : 1985 Sex: Female Race: Black Height: 65.00 Inches Weight: 243.00 Lbs BSA: 2.15 Order IDs: [id number] Requested Test(s): <RESP-PFT.METH CHAL> Diagnosis: R05 of albuterol for post bronchodilator. Review Status: Not Reviewed Pre-Bronch Post-Bronch Pred Actual %Pred Actual %Chng SPIROMETRY FVC (L) 3.28 3.35 102 3.32 FEV1 (L) 2.75 2.84 103 2.86 FEV1/FVC (%) 85 85 100 86 1 FEF 25% (L/sec) 5.71 6.13 107 5.86 -4 FEF 50% (L/sec) 4.38 4.39 100 4.16 -5 FEF 75% (L/sec) 1.81 1.31 72 1.42 8 FEF 25-75% (L/sec) 3.13 3.30 105 3.35 1 FEF Max (L/sec) 6.94 6.18 89 6.23 FIVC (L) 2.28 3.43 50 FIF 50% (L/sec) 4.40 5.10 115 4.21 -17 FIF Max (L/sec) 5.19 4.59 -11 Expiratory Time (sec) 5.37 6.63 23 Back Extrap Vol (L) 0.10 0.09 -6 Time To FEFmax (sec) 0.114 0.089 -22
== END ==
LOC: M CARPUL 14:47
PROVIDERS: ATTEND Nurse Practitioner Adult Health
DX: R05.9 Cough, unspecified (principal)
CPT/HCPCS: 94070; J7674

== ENCOUNTER → 2021-04-22 | Outpatient (CLI) | payer BC ==
[~2021-04-22] MED LIST changes: -METHACHOLINE KIT (J7674) INH ONE
[2021-04-22 19:05] LABS: GC DNA AMPLIFICATION NEGATIVE (NEGATIVE)
[2021-04-23 13:25] LABS: HEPATITIS C VIRUS ABY INDEX < 0.0 INDEX (<0.8); HIV 1&2 SCREEN CENTAUR NEGATIVE (NEGATIVE)
== END ==
LOC: M PLALAB 15:06
PROVIDERS: ATTEND Specialist
DX: Z20.2 Contact with and (suspected) exposure to infections with a predominantly sexual mode of transmission (principal)

== ENCOUNTER → 2021-05-05 | Outpatient (CLI) | payer BC ==
[2021-05-05 13:56] LABS: ALBUMIN 3.4 GM/DL (3.2-5.2); ALT/SGPT 21 U/L (12-78); BILIRUBIN,TOTAL 0.3 MG/DL (0.2-1.0); BLOOD UREA NITROGEN 12 MG/DL (7-18); CALCIUM LEVEL 9.1 MG/DL (8.5-10.1); CARBON DIOXIDE LEVEL 27 MEQ/L (21-32); CHLORIDE LEVEL 106 MEQ/L (98-107); CREATININE FOR GFR 0.67 MG/DL (0.55-1.30); FOLLICLE STIMULATING HORMONE 9.1 mIU/mL; GLOMERULAR FILTRATION RATE > 60.0 (>60); GLUCOSE, FASTING 96 MG/DL (70-100); POTASSIUM SERUM 4.5 MEQ/L (3.5-5.1); SODIUM LEVEL 141 MEQ/L (136-145); TESTOSTERONE 36 NG/DL (14-76); THYROID STIMULATING HORMONE 0.796 uIU/ML (0.358-3.740); TOTAL PROTEIN 7.3 GM/DL (6.4-8.2)
== END ==
LOC: M PLALAB 09:52
PROVIDERS: ATTEND Family Medicine
DX: E66.01 Morbid (severe) obesity due to excess calories (principal)

== ENCOUNTER → 2021-07-19 | Outpatient (CLI) | payer BC ==
[2021-07-19 13:23] LABS: HEMOGLOBIN A1c 5.6 %
== END ==
LOC: M LAB 10:15
PROVIDERS: ATTEND Surgery
DX: Z86.39 Personal history of other endocrine, nutritional and metabolic disease (principal)

== ENCOUNTER 2021-07-22 11:42 | Emergency (ER) | payer BC ==
[~2021-07-22] VITALS: Ht 165.1 cm; Wt 110.0 kg
[2021-07-22] MEDS ORDERED: PRED10TA2 (11:49)
[2021-07-22] MEDS ORDERED: ALLE1TAB23 (11:49)
[2021-07-22] MEDS ORDERED: NORE0.353 (12:41)
[2021-07-22 12:52] LABS: BASO % 0.5 % (0.0-1.0); EOS % 0.5 % (0.0-3.0); HEMATOCRIT 37.4 % (36.0-47.0); HEMOGLOBIN 12.2 g/dl (12.0-15.5); LYMPH # 1.1 10^3/uL (1.5-5.0); LYMPH % 17.5 % (24.0-44.0); MEAN CORPUSCULAR HEMOGLOBIN 29.6 pg (27.0-33.0); MEAN CORPUSCULAR HGB CONC 32.6 g/dl (32.0-36.5); MEAN CORPUSCULAR VOLUME 90.8 fl (80.0-96.0); MONO # 0.5 10^3/uL (0.0-0.8); MONO % 8.1 % (2.0-8.0); NEUTROPHILS # 4.7 10^3/uL (1.5-8.5); NEUTROPHILS % 72.8 % (36.0-66.0); PLATELET COUNT, AUTOMATED 342 10^3/uL (150-450); RED BLOOD COUNT 4.12 10^6/uL (4.00-5.40); WHITE BLOOD COUNT 6.5 10^3/uL (4.0-10.0)
[2021-07-22 14:01] VITALS: BP 126/90
== END 2021-07-22 14:02 | disposition home or self-care (01) ==
LOC: M ED 11:42
DX: Z32.01 Encounter for pregnancy test, result positive (principal); Z87.59 Personal history of other complications of pregnancy, childbirth and the puerperium; O99.511 Diseases of the respiratory system complicating pregnancy, first trimester; Z88.0 Allergy status to penicillin; Z91.89 Other specified personal risk factors, not elsewhere classified; Z91.040 Latex allergy status

== ENCOUNTER → 2021-09-01 | Outpatient (CLI) | payer BC ==
[~2021-09-01] MED LIST changes: +ALLE1TAB23; +NORE0.353; +PRED10TA2
[2021-09-01 11:43] LABS: HEMATOCRIT 36.8 % (36.0-47.0); HEMOGLOBIN 11.9 g/dl (12.0-15.5); MEAN CORPUSCULAR HEMOGLOBIN 29.5 pg (27.0-33.0); MEAN CORPUSCULAR HGB CONC 32.3 g/dl (32.0-36.5); MEAN CORPUSCULAR VOLUME 91.3 fl (80.0-96.0); PLATELET COUNT, AUTOMATED 328 10^3/uL (150-450); RED BLOOD COUNT 4.03 10^6/uL (4.00-5.40); WHITE BLOOD COUNT 10.3 10^3/uL (4.0-10.0)
[2021-09-01 13:00] LABS: HEPATITIS C VIRUS ABY INDEX 0.1 INDEX (<0.8); HIV 1&2 SCREEN CENTAUR NEGATIVE (NEGATIVE)
[2021-09-01 13:34] LABS: GC DNA AMPLIFICATION NEGATIVE (NEGATIVE)
== END ==
LOC: M LAB 10:57
PROVIDERS: ATTEND Obstetrics & Gynecology
DX: Z36.89 Encounter for other specified antenatal screening (principal); Z3A.10 10 weeks gestation of pregnancy

== ENCOUNTER → 2021-09-02 | Outpatient (CLI) | payer BC | LOC: M PLALAB 10:38 | PROVIDERS: ATTEND Obstetrics & Gynecology | DX: O09.512 Supervision of elderly primigravida, second trimester (principal); Z3A.00 Weeks of gestation of pregnancy not specified ==

== ENCOUNTER → 2021-09-29 | Outpatient (REF) | payer BC ==
[2021-09-29 14:05] LABS: APPEARANCE, URINE HAZY (CLEAR); BACTERIA, URINE AUTO NEGATIVE (NEGATIVE); BILIRUBIN, URINE AUTO NEGATIVE (NEGATIVE); BLOOD, URINE BLOOD NEGATIVE (NEGATIVE); COLOR, URINE YELLOW (YELLOW); GLUCOSE, URINE (UA) AUTO NEGATIVE (NEGATIVE); KETONE, URINE AUTO 2+ mg/dL (NEGATIVE); LEUKOCYTE ESTERASE, URINE AUTO NEGATIVE (NEGATIVE); MUCUS, URINE SMALL (NEGATIVE); NITRITE, URINE AUTO NEGATIVE (NEGATIVE); PROTEIN, URINE AUTO NEGATIVE (NEGATIVE); RBC, URINE AUTO 0 /HPF (0-3); SPECIFIC GRAVITY URINE AUTO 1.017 (1.002-1.035); SQUAMOUS EPITHELIAL CELL UR AU 3 /HPF (0-6); WBC, URINE AUTO 0 /HPF (0-3)
== END ==
LOC: M PLALAB 11:25
PROVIDERS: ATTEND Obstetrics & Gynecology
DX: Z34.92 Encounter for supervision of normal pregnancy, unspecified, second trimester (principal)

== ENCOUNTER → 2021-10-19 | Outpatient (CLI) | payer BC | LOC: M WHC 09:31 | PROVIDERS: ATTEND Obstetrics & Gynecology | DX: O32.1XX0 Maternal care for breech presentation, not applicable or unspecified (principal); Z36.89 Encounter for other specified antenatal screening; Z3A.19 19 weeks gestation of pregnancy ==

== ENCOUNTER → 2021-11-09 | Outpatient (CLI) | payer BC | LOC: M WHC 13:43 | PROVIDERS: ATTEND Obstetrics & Gynecology | DX: Z34.90 Encounter for supervision of normal pregnancy, unspecified, unspecified trimester (principal); Z3A.21 21 weeks gestation of pregnancy ==

== ENCOUNTER → 2021-11-16 | Outpatient (REF) | LOC: M LAB 13:00 | PROVIDERS: ATTEND Nurse Practitioner Family | DX: Z02.89 Encounter for other administrative examinations (principal) ==

== ENCOUNTER → 2021-11-26 | Outpatient (CLI) | payer BC ==
[2021-11-26 10:39] LABS: HEMATOCRIT 31.7 % (36.0-47.0); HEMOGLOBIN 10.2 g/dl (12.0-15.5); MEAN CORPUSCULAR HEMOGLOBIN 29.1 pg (27.0-33.0); MEAN CORPUSCULAR HGB CONC 32.2 g/dl (32.0-36.5); MEAN CORPUSCULAR VOLUME 90.6 fl (80.0-96.0); PLATELET COUNT, AUTOMATED 346 10^3/uL (150-450); WHITE BLOOD COUNT 7.9 10^3/uL (4.0-10.0)
== END ==
LOC: M PLALAB 07:11
PROVIDERS: ATTEND Obstetrics & Gynecology
DX: O34.211 Maternal care for low transverse scar from previous cesarean delivery (principal)

== ENCOUNTER → 2021-12-01 | Outpatient (CLI) | payer BC | LOC: M WHC 14:51 | PROVIDERS: ATTEND Obstetrics & Gynecology | DX: O34.211 Maternal care for low transverse scar from previous cesarean delivery (principal); Z3A.25 25 weeks gestation of pregnancy ==

== ENCOUNTER → 2021-12-08 | Outpatient (CLI) | payer BC ==
[~2021-12-08] MED LIST changes: +ACET325C5 PO
== END ==
LOC: M WHC 10:43
PROVIDERS: ATTEND Obstetrics & Gynecology
DX: O36.5920 Maternal care for other known or suspected poor fetal growth, second trimester, not applicable or unspecified (principal); O28.3 Abnormal ultrasonic finding on antenatal screening of mother; Z3A.00 Weeks of gestation of pregnancy not specified

== ENCOUNTER → 2021-12-09 | Outpatient (REF) | LOC: M LABSMTC 09:44 | PROVIDERS: ATTEND Family Medicine | DX: Z20.822 Contact with and (suspected) exposure to COVID-19 (principal) ==

== ENCOUNTER 2021-12-10 22:55 | Outpatient (CLI) | payer BC ==
[~2021-12-10] VITALS: Ht 165.1 cm; Wt 95.7 kg
[~2021-12-10 22:55] MED LIST changes: -ACET325C5 PO
[2021-12-10 23:10] VITALS: BP 129/71
[2021-12-10] MEDS ORDERED: LR 1,000 ML IV SCH (23:25)
[2021-12-10] MEDS ORDERED: BETAMETHASONE SOLUSPAN 6MG/ML 5ML VIAL (J0702 PER 3MG) IM ONE (23:25)
[2021-12-10] MEDS ORDERED: LR 1,000 ML IV ONE (23:25)
[2021-12-10] MEDS ORDERED: PRENTAB9 PO (23:30)
[2021-12-10] MEDS ORDERED: ACET325C5 PO (23:30)
[2021-12-11 00:18] VITALS: BP 121/79
[2021-12-11 00:48] LABS: HEMATOCRIT 31.1 % (36.0-47.0); HEMOGLOBIN 10.3 g/dl (12.0-15.5); MEAN CORPUSCULAR HEMOGLOBIN 29.2 pg (27.0-33.0); MEAN CORPUSCULAR HGB CONC 33.1 g/dl (32.0-36.5); MEAN CORPUSCULAR VOLUME 88.1 fl (80.0-96.0); PLATELET COUNT, AUTOMATED 317 10^3/uL (150-450); RED BLOOD COUNT 3.53 10^6/uL (4.00-5.40); WHITE BLOOD COUNT 6.6 10^3/uL (4.0-10.0)
[2021-12-11] MEDS ORDERED: AZITHROMYCIN 250MG TABLET PO ONE (00:55)
[2021-12-11] MEDS ORDERED: ceFAZolin SOD 1 GM in D5W MINI-BAG PLUS 50 ML IV SCH (01:00)
[2021-12-11] MEDS ORDERED: CALCIUM GLUCONATE 1,000 MG in D5W MINI-BAG PLUS 100 ML IV PRN (01:25)
[2021-12-11] MEDS ORDERED: ACETAMINOPHEN TAB 650MG DOSE (2X325MG) PO PRN (01:25)
[2021-12-11] MEDS ORDERED: MAG Sulf (L&D) 4 GM/100 ML 4 GM in IV 1 EA IV ONE (01:25)
[2021-12-11] MEDS ORDERED: DOCUSATE SODIUM 100MG CAPSULE PO PRN (01:25)
[2021-12-11 01:27] VITALS: BP 135/73
[2021-12-11] MEDS ORDERED: MAG Sulf (OBGYN) 20GM/500ML 20,000 MG in IV 1 EA IV SCH (01:45)
[2021-12-11 01:59] LABS: APPEARANCE, URINE MANUAL CLOUDY (CLEAR); BILIRUBIN, URINE MANUAL NEGATIVE (NEGATIVE); COLOR, URINE MANUAL YELLOW (YELLOW); GLUCOSE, URINE (UA) MANUAL NEGATIVE (NEGATIVE); KETONE, URINE MANUAL 2+ mg/dL (NEGATIVE); NITRITE, URINE MANUAL NEGATIVE (NEGATIVE); PROTEIN, URINE MANUAL 2+ mg/dL (NEGATIVE); UROBILINOGEN, URINE MANUAL NORMAL (NORMAL)
[2021-12-11 02:00] LABS: BLOOD URINE MANUAL NEGATIVE (NEGATIVE); LEUKOCYTE ESTERASE, URINE MAN NEGATIVE (NEGATIVE)
[2021-12-11 02:09] LABS: SQUAMOUS EPITHELIAL CELL URINE LARGE AMOUNT /hpf (SMALL AMT); TRANSITIONAL EPI CELLS, URINE SMALL AMOUNT /hpf
[2021-12-11 02:10] LABS: HYALINE CAST, URINE NONE SEEN /lpf (0-1); MUCUS, URINE LARGE AMOUNT (NEGATIVE)
[2021-12-11 02:22] LABS: URIC ACID CRYSTALS, URINE SMALL AMOUNT /hpf
[2021-12-11 02:24] LABS: BACTERIA, URINE MOD AMOUNT
[2021-12-11] MEDS ORDERED: PRENATAL VITAMINS CHEWABLE TABLET PO SCH (09:00)
== END 2021-12-11 04:00 | disposition short-term general hospital (02) ==
LOC: M LDO 22:55
PROVIDERS: ATTEND Obstetrics & Gynecology
DX: O42.912 Preterm premature rupture of membranes, unspecified as to length of time between rupture and onset of labor, second trimester (principal); O34.219 Maternal care for unspecified type scar from previous cesarean delivery; O09.512 Supervision of elderly primigravida, second trimester; O09.12 Supervision of pregnancy with history of ectopic pregnancy, second trimester; Z3A.27 27 weeks gestation of pregnancy
CPT/HCPCS: 59025; 76816; 81000; 85027; 86780; 86850; 86900; 86901; 87081; 96372; 96374; G0463; J0690; J0702; J3475

== ENCOUNTER → 2022-06-20 | Outpatient (CLI) | payer BC ==
[~2022-06-20] MED LIST changes: +ACET325C5 PO
== END ==
LOC: M LABSMTC 09:05
PROVIDERS: ATTEND Anesthesiology
DX: Z01.812 Encounter for preprocedural laboratory examination (principal); Z20.822 Contact with and (suspected) exposure to COVID-19

== ENCOUNTER → 2022-11-30 | Outpatient (REF) ==
[~2022-11-30] MED LIST changes: -AMIT25TA17 PO; +AMIT25TA19 PO; +BENZ200C70 PO; +PROM25TA12 PO; +ZITHTAB PO
== END ==
LOC: M EMP 11:44
PROVIDERS: ATTEND Family Medicine
DX: Z11.52 Encounter for screening for COVID-19 (principal)

== ENCOUNTER 2022-12-02 12:26 | Emergency (ER) | payer BC ==
[~2022-12-02] VITALS: Ht 165.1 cm; Wt 8.9 kg
[~2022-12-02 12:26] MED LIST changes: -BENZ200C70 PO; -PROM25TA12 PO; -ZITHTAB PO
[2022-12-02] MEDS ORDERED: PROM25TA12 PO (15:36)
[2022-12-02] MEDS ORDERED: ZITHTAB PO (15:36)
[2022-12-02] MEDS ORDERED: BENZ200C70 PO (15:36)
[2022-12-02 15:53] VITALS: BP 124/75; TEMP 97.2; O2SAT 95
== END 2022-12-02 15:45 | disposition home or self-care (01) ==
LOC: M ED 12:26
DX: U07.1 COVID-19 (principal); A37.00 Whooping cough due to Bordetella pertussis without pneumonia; Z88.0 Allergy status to penicillin; Z91.040 Latex allergy status; Z91.048 Other nonmedicinal substance allergy status

== ENCOUNTER → 2023-03-13 | Outpatient (REF) ==
[~2023-03-13] MED LIST changes: -ALLE1TAB23; +BENZ200C70 PO; +FEXO-157; +PROM25TA12 PO; +ZITHTAB PO
[2023-03-13 10:46] LABS: RSV AMPLIFICATION NEGATIVE (NEGATIVE)
== END ==
LOC: M EMP 08:36
PROVIDERS: ATTEND Family Medicine
DX: Z20.828 Contact with and (suspected) exposure to other viral communicable diseases (principal)

== ENCOUNTER → 2023-06-08 | Outpatient (CLI) | payer BC ==
[2023-06-08 09:20] LABS: BASO % 0.6 % (0.0-1.0); EOS % 0.3 % (0.0-3.0); HEMATOCRIT 38.2 % (36.0-47.0); HEMOGLOBIN 12.5 g/dl (12.0-15.5); LYMPH # 1.3 10^3/uL (1.5-5.0); MEAN CORPUSCULAR HEMOGLOBIN 29.8 pg (27.0-33.0); MEAN CORPUSCULAR HGB CONC 32.7 g/dl (32.0-36.5); MEAN CORPUSCULAR VOLUME 91.2 fl (80.0-96.0); MONO # 0.2 10^3/uL (0.0-0.8); MONO % 3.2 % (2.0-8.0); NEUTROPHILS # 4.7 10^3/uL (1.5-8.5); NEUTROPHILS % 74.7 % (36.0-66.0); PLATELET COUNT, AUTOMATED 368 10^3/uL (150-450); RED BLOOD COUNT 4.19 10^6/uL (4.00-5.40); WHITE BLOOD COUNT 6.3 10^3/uL (4.0-10.0)
[2023-06-08 09:33] LABS: HEMOGLOBIN A1c 5.8 % (4.0-6.0)
[2023-06-08 10:11] LABS: TOTAL IRON BINDING CAPACITY 376 UG/DL (250-425); VITAMIN B12 LEVEL 584 PG/ML (211-911)
[2023-06-08 10:12] LABS: ALBUMIN 3.5 G/DL (3.2-5.2); ALKALINE PHOSPHATASE 60 U/L (46-116); ALT/SGPT 14 U/L (7.0-40); AST/SGOT 21 U/L (<34); BILIRUBIN,TOTAL 0.5 MG/DL (0.3-1.2); BLOOD UREA NITROGEN 14 MG/DL (9-23); CALCIUM LEVEL 8.8 MG/DL (8.5-10.1); CARBON DIOXIDE LEVEL 26 MMOL/L (20-31); CHLORIDE LEVEL 106 MMOL/L (98-107); CHOLESTEROL LEVEL 239 MG/DL (<200); FREE T4 0.99 NG/DL (0.89-1.76); GLOMERULAR FILTRATION RATE > 60.0 (>60); GLUCOSE, FASTING 87 MG/DL (60-100); IRON (FE) 86 UG/DL (50-170); LDL CHOLESTEROL 164.8 MG/DL (<100); PERCENT SATURATION 22.9 % (13.2-45.0); POTASSIUM SERUM 4.6 MMOL/L (3.5-5.1); SODIUM LEVEL 139 MMOL/L (136-145); THYROID STIMULATING HORMONE 0.935 uIU/ML (0.55-4.78); TOTAL PROTEIN 7.3 G/DL (5.7-8.2); TRIGLYCERIDES LEVEL 106 MG/DL (<150)
[2023-06-08 10:13] LABS: FOLATE > 24.0 NG/ML (>5.4)
== END ==
LOC: M LAB 07:41
PROVIDERS: ATTEND Family Medicine
DX: Z13.220 Encounter for screening for lipoid disorders (principal); Z13.29 Encounter for screening for other suspected endocrine disorder; Z13.0 Encounter for screening for diseases of the blood and blood-forming organs and certain disorders involving the immune mechanism

== ENCOUNTER → 2023-06-27 | Outpatient (REF) | LOC: M EMP 10:48 | PROVIDERS: ATTEND Family Medicine | DX: Z11.52 Encounter for screening for COVID-19 (principal) ==

== ENCOUNTER → 2023-06-27 | Outpatient (REF) | LOC: M EMP 10:45 | PROVIDERS: ATTEND Family Medicine | DX: Z11.52 Encounter for screening for COVID-19 (principal) ==

== ENCOUNTER → 2023-09-01 | Outpatient (REF) | payer BC ==
[2023-09-05 15:12] LABS: HPV APTIMA Not Detected (Not Detected)
== END ==
LOC: M SFHCWAGY 17:26
PROVIDERS: ATTEND Specialist
DX: Z12.4 Encounter for screening for malignant neoplasm of cervix (principal)
CPT/HCPCS: 87624; G0123

== ENCOUNTER → 2023-11-17 | Outpatient (REF) ==
[~2023-11-17] MED LIST changes: -FEXO-157; +FEXO-63
== END ==
LOC: M EMP 17:30
PROVIDERS: ATTEND Family Medicine
DX: Z11.52 Encounter for screening for COVID-19 (principal)

== ENCOUNTER → 2023-12-27 | Outpatient (CLI) | payer BC | LOC: M RAD 16:08 | PROVIDERS: ATTEND Nurse Practitioner Adult Health | DX: R05.1 Acute cough (principal) ==

== ENCOUNTER → 2023-12-28 | Outpatient (REF) | payer BC ==
[2023-12-28 09:21] LABS: BASO # 0.1 10^3/uL (0.0-0.2); BASO % 0.6 % (0.0-1.0); EOS # 0.1 10^3/uL (0.0-0.5); EOS % 1.2 % (0.0-3.0); HEMATOCRIT 38.7 % (36.0-47.0); HEMOGLOBIN 12.3 g/dl (12.0-15.5); LYMPH # 1.9 10^3/uL (1.5-5.0); LYMPH % 21.4 % (24.0-44.0); MEAN CORPUSCULAR HEMOGLOBIN 29.3 pg (27.0-33.0); MEAN CORPUSCULAR HGB CONC 31.8 g/dl (32.0-36.5); MEAN CORPUSCULAR VOLUME 92.1 fl (80.0-96.0); MONO # 0.3 10^3/uL (0.0-0.8); MONO % 3.5 % (2.0-8.0); NEUTROPHILS # 6.3 10^3/uL (1.5-8.5); NEUTROPHILS % 72.7 % (36.0-66.0); PLATELET COUNT, AUTOMATED 401 10^3/uL (150-450); WHITE BLOOD COUNT 8.7 10^3/uL (4.0-10.0)
[2023-12-28 09:50] LABS: BLOOD UREA NITROGEN 14 MG/DL (9-23); CALCIUM LEVEL 9.1 MG/DL (8.5-10.1); CARBON DIOXIDE LEVEL 27 MMOL/L (20-31); CHLORIDE LEVEL 107 MMOL/L (98-107); CREATININE FOR GFR 0.58 MG/DL (0.55-1.30); GLOMERULAR FILTRATION RATE > 60.0 (>60); GLUCOSE, FASTING 88 MG/DL (60-100); SODIUM LEVEL 139 MMOL/L (136-145)
[2024-01-01 13:27] LABS: QuantiFERON-TB Gold Plus NEGATIVE (NEGATIVE)
== END ==
LOC: M LAB REF 08:31
PROVIDERS: ATTEND Nurse Practitioner Adult Health
DX: R05.1 Acute cough (principal)

== ENCOUNTER → 2024-04-01 | Outpatient (REF) | payer BC | LOC: M LAB REF 12:03 | PROVIDERS: ATTEND Physician Assistant Medical | DX: R50.9 Fever, unspecified (principal); R05.9 Cough, unspecified ==

== ENCOUNTER 2024-05-16 09:14 | Day surgery (SDC) | payer BC ==
[~2024-05-16] VITALS: Ht 165.1 cm; Wt 102.1 kg
[2024-05-16] MEDS ORDERED: LR 1,000 ML IV SCH ×2 (09:45→12:55)
[2024-05-16] MEDS ORDERED: fentaNYL 100 MCG/2 ML INJECTION As Ordered ONE (10:38)
[2024-05-16] MEDS ORDERED: MIDAZOLAM INJ 2MG/2ML VIAL As Ordered ONE (10:38)
[2024-05-16] MEDS ORDERED: ROCURONIUM BROMIDE 50MG/5ML VIAL As Ordered ONE (10:38)
[2024-05-16] MEDS ORDERED: ONDANSETRON 4MG 2ML VIAL As Ordered ONE (10:38)
[2024-05-16] MEDS ORDERED: LIDOCAINE 2% 100MG/5ML SDV (FOR ANES.) As Ordered ONE (10:38)
[2024-05-16] MEDS ORDERED: propofoL 200 MG/20 ML VIAL As Ordered ONE (10:38)
[2024-05-16] MEDS ORDERED: ACETAMINOPHEN 1000MG/100ML IV BAG As Ordered ONE (10:50)
[2024-05-16] MEDS ORDERED: SUGAMMADEX SODIUM 500 MG/5 ML VIAL (BRIDION) As Ordered ONE (10:52)
[2024-05-16] MEDS ORDERED: dexmedeTOMIDine (4MCG/ML)200MCG/50ML BTL (PRECEDEX) As Ordered ONE (11:32)
[2024-05-16] MEDS ORDERED: ONDANSETRON 4MG 2ML VIAL IV PRN (12:55)
[2024-05-16] MEDS: fentaNYL 100 MCG/2 ML INJECTION IV PRN (13:23)
[2024-05-16] MEDS: HYDROcodone/APAP LIQUID 7.5-325MG 15ML UDC (LORTAB ELIXIR) PO PRN (13:47)
[2024-05-16] MEDS: ONDANSETRON 4MG 2ML VIAL IV PRN (15:04)
[2024-05-16] MEDS: MORPHINE 2 MG/ML 1ML VIAL IV PRN (15:06)
[2024-05-16 15:45] VITALS: BP 121/78; TEMP 97.3; O2SAT 96
== END 2024-05-16 15:49 | disposition home or self-care (01) ==
LOC: M SDC 09:14
PROVIDERS: ATTEND Otolaryngology
DX: J35.03 Chronic tonsillitis and adenoiditis (principal); I67.1 Cerebral aneurysm, nonruptured; E78.00 Pure hypercholesterolemia, unspecified; Z88.0 Allergy status to penicillin; Z91.040 Latex allergy status; Z91.048 Other nonmedicinal substance allergy status; Z79.3 Long term (current) use of hormonal contraceptives
CPT/HCPCS: 42821; 88302; J0131; J0665; J1100; J2250; J2405; J3010

== ENCOUNTER → 2024-07-08 | Outpatient (CLI) | payer BC | LOC: M LAB 12:11 | PROVIDERS: ATTEND Specialist | DX: N91.2 Amenorrhea, unspecified (principal) ==

== ENCOUNTER → 2024-08-08 | Outpatient (CLI) | payer BC | LOC: M RAD 10:12 | PROVIDERS: ATTEND Specialist | DX: N92.6 Irregular menstruation, unspecified (principal) ==

== ENCOUNTER → 2024-09-24 | Outpatient (REF) | payer BC | LOC: M SFHCDERM 17:06 | PROVIDERS: ATTEND Physician Assistant | DX: R21 Rash and other nonspecific skin eruption (principal) ==

== ENCOUNTER → 2024-10-10 | Outpatient (CLI) | payer BC ==
[2024-10-10 10:36] LABS: BASO # 0.0 10^3/uL (0.0-0.2); BASO % 0.6 % (0.0-1.0); EOS # 0.1 10^3/uL (0.0-0.5); EOS % 2.3 % (0.0-3.0); LYMPH # 1.2 10^3/uL (1.5-5.0); LYMPH % 25.6 % (24.0-44.0); MONO # 0.3 10^3/uL (0.0-0.8); MONO % 6.4 % (2.0-8.0); NEUTROPHILS # 3.1 10^3/uL (1.5-8.5); NEUTROPHILS % 64.9 % (36.0-66.0); PLATELET COUNT, AUTOMATED 319 10^3/uL (150-450)
[2024-10-10 10:49] LABS: ESTIMATED AVERAGE GLUCOSE 114.0 MG/DL (60-110)
[2024-10-10 10:58] LABS: ALT/SGPT 14 U/L (7.0-40); AST/SGOT 27 U/L (<34); CALCIUM LEVEL 8.3 MG/DL (8.5-10.1); CARBON DIOXIDE LEVEL 26 MMOL/L (20-31); CHLORIDE LEVEL 106 MMOL/L (98-107); CHOLESTEROL LEVEL 171 MG/DL (<200); CHOLESTEROL RISK RATIO 5.21 (<5); CREATININE FOR GFR 0.57 MG/DL (0.55-1.30); GLOMERULAR FILTRATION RATE > 90.0 (>60); LDL CHOLESTEROL 129.4 MG/DL (<100); NON-HDL-C 138.2 MG/DL; POTASSIUM SERUM 4.6 MMOL/L (3.5-5.1); SODIUM LEVEL 142 MMOL/L (136-145); TRIGLYCERIDES LEVEL 44 MG/DL (<150)
[2024-10-10 11:00] LABS: FREE T4 1.08 NG/DL (0.89-1.76)
== END ==
LOC: M LAB 08:05
PROVIDERS: ATTEND Nurse Practitioner Adult Health
DX: E66.9 Obesity, unspecified (principal); R73.01 Impaired fasting glucose

== ENCOUNTER → 2025-03-25 | Outpatient (REF) | payer OTHER ==
[2025-03-25 09:03] LABS: PLATELET COUNT, AUTOMATED 350 10^3/uL (150-450)
[2025-03-25 15:27] LABS: HEPATITIS B SURFACE ANTIBODY NEGATIVE (POSITIVE)
[2025-03-25 15:52] LABS: HIV 1&2 SCREEN NEGATIVE (NEGATIVE)
[2025-03-25 16:00] LABS: HEPATITIS C VIRUS ABY INDEX 0.05 INDEX (<0.8)
[2025-03-25 16:04] LABS: ALT/SGPT 11 U/L (7.0-40); AST/SGOT 23 U/L (<34); CALCIUM LEVEL 9.2 MG/DL (8.5-10.1); CARBON DIOXIDE LEVEL 26 MMOL/L (20-31); CHLORIDE LEVEL 106 MMOL/L (98-107); CHOLESTEROL LEVEL 205 MG/DL (<200); CHOLESTEROL RISK RATIO 5.07 (<5); CREATININE FOR GFR 0.57 MG/DL (0.55-1.30); FREE T4 1.03 NG/DL (0.89-1.76); GLOMERULAR FILTRATION RATE > 90.0 (>60); LDL CHOLESTEROL 156.2 MG/DL (<100); NON-HDL-C 164.6 MG/DL; POTASSIUM SERUM 4.2 MMOL/L (3.5-5.1); SODIUM LEVEL 139 MMOL/L (136-145); TRIGLYCERIDES LEVEL 42 MG/DL (<150)
[2025-03-26 11:10] LABS: HEPATITIS B CORE ANTIBODY IGG NON-REACTIVE (NON-REACTIVE)
== END ==
LOC: M SFHCDERM 08:13
PROVIDERS: ATTEND Physician Assistant
DX: Z79.899 Other long term (current) drug therapy (principal)